=== PATIENT | female | born 1955 | race African-American/Black ===

== ENCOUNTER 2020-11-18 17:06 | Inpatient (IN) | payer BC, MEDICAID ==
[~2020-11-18] VITALS: Ht 177.8 cm; Wt 146.5 kg
[2020-11-18 19:12] LABS: BASOPHILS % 0.4 % (0.0-2.0); HEMATOCRIT. 36.7 % (36.0-48.0); HEMOGLOBIN. 11.9 g/dL (12.0-16.0); LYMPHOCYTES % 20.4 % (20.0-50.0); MEAN CORPUSCULAR HEMOGLOBIN 29.1 pg (28.0-32.0); MEAN CORPUSCULAR VOLUME 89.7 fL (81.0-99.0); MEAN PLATELET VOLUME 10.6 fl (7.4-10.4); MONOCYTES % 7.8 % (2.0-8.0); NEUTROPHILS % 69.4 % (40.0-76.0); PLATELET 220 x1000/uL (130-400); RED BLOOD CELL COUNT 4.09 mill/uL (4.2-5.4); RED CELL DISTRIBUTION WIDTH 14.4 % (11.6-14.6)
[2020-11-18] MEDS ORDERED: MECLIZINE 25MG TABLET PO ONE (19:15)
[2020-11-18] MEDS ORDERED: SODIUM CHLORIDE 0.9% 1,000 ML IV ONE (19:15)
[2020-11-18 19:20] LABS: CHLORIDE 107 mEq/L (98-107)
[2020-11-18 19:23] LABS: ETHANOL BLOOD < 10 mg/dL
[2020-11-18 19:27] LABS: LDL CHOLESTEROL 88 mg/dL (5-100)
[2020-11-18] MEDS ORDERED: ASPIRIN 325MG EC TABLET PO ONE (22:45)
[2020-11-18] MEDS ORDERED: IOHEXOL-350 100 ML BOTTLE ONE (23:19)
[2020-11-19] VITALS (7 sets, daily range): BP systolic 124–141; BP diastolic 70–84
[2020-11-19 07:42] LABS: *AMPHETAMINES SCREEN URINE NEGATIVE (NEGATIVE); *BARBITURATES SCREEN URINE NEGATIVE (NEGATIVE); *COCAINE SCREEN URINE NEGATIVE (NEGATIVE); CANNABINOID URINE SCREEN NEGATIVE (NEGATIVE); METHADONE URINE SCREEN NEGATIVE (NEGATIVE); OPIATES URINE SCREEN NEGATIVE (NEGATIVE); PHENCYCLIDINE URINE SCREEN NEGATIVE (NEGATIVE)
[2020-11-19 07:43] LABS: *BENZODIAZEPINES SCREEN URINE NEGATIVE (NEGATIVE)
[2020-11-19 07:51] LABS: CLARITY URINE CLEAR (CLEAR); COLOR URINE YELLOW (YELLOW); KETONES URINE NEGATIVE (NEGATIVE); LEUKOCYTE ESTERASE URINE NEGATIVE (NEGATIVE); NITRITE URINE NEGATIVE (NEGATIVE); OCCULT BLOOD URINE NEGATIVE (NEGATIVE); PROTEIN URINE NEGATIVE (NEGATIVE); SPECIFIC GRAVITY URINE 1.059 (1.005-1.030); UROBILINOGEN URINE 0.2 E.U./dL (0.2-1.0)
[2020-11-19] MEDS ORDERED: ONDANSETRON HCL 4MG/2ML INJ IV PRN (09:30)
[2020-11-19] MEDS ORDERED: MECLIZINE 25MG TABLET PO PRN (09:30)
[2020-11-19] MEDS ORDERED: ACETAMINOPHEN 325MG TABLET PO PRN (09:30)
[2020-11-19] MEDS ORDERED: ENOXAPARIN 30MG/0.3ML SYR SUBCUT SCH (10:00)
[2020-11-19] MEDS ORDERED: MAX MT (10:22)
[2020-11-19] MEDS ORDERED: ATOR10TA MT (10:22)
[2020-11-19] MEDS: ASPIRIN 81MG TABLET PO SCH (10:29)
[2020-11-19] MEDS: AMLODIPINE 2.5MG TABLET PO SCH (10:30)
[2020-11-19] MEDS ORDERED: ATORVASTATIN CALCIUM 10MG TABLET PO SCH (21:00)
[2020-11-19] MEDS: ENOXAPARIN 40MG/0.4ML SYR SUBCUT SCH (21:04)
[2020-11-20] VITALS: BP 118/58
[2020-11-20 04:00] VITALS: BP 135/72
[2020-11-20 05:16] LABS: BASOPHILS % 0.5 % (0.0-2.0); HEMATOCRIT. 37.1 % (36.0-48.0); HEMOGLOBIN. 12.1 g/dL (12.0-16.0); LYMPHOCYTES % 29.7 % (20.0-50.0); MEAN CORPUSCULAR HEMOGLOBIN 29.2 pg (28.0-32.0); MEAN CORPUSCULAR VOLUME 89.9 fL (81.0-99.0); MEAN PLATELET VOLUME 10.6 fl (7.4-10.4); MONOCYTES % 8.1 % (2.0-8.0); NEUTROPHILS % 59.7 % (40.0-76.0); PLATELET 194 x1000/uL (130-400); RED BLOOD CELL COUNT 4.13 mill/uL (4.2-5.4); RED CELL DISTRIBUTION WIDTH 14.3 % (11.6-14.6)
[2020-11-20 05:28] LABS: CHLORIDE 108 mEq/L (98-107)
[2020-11-20 08:00] VITALS: BP 129/93
[2020-11-20] MEDS: ASPIRIN 81MG TABLET PO SCH (09:25)
[2020-11-20] MEDS: ENOXAPARIN 40MG/0.4ML SYR SUBCUT SCH (09:25)
[2020-11-20] MEDS: AMLODIPINE 2.5MG TABLET PO SCH (09:25)
[2020-11-20 11:43] VITALS: BP_SYST 143; BP_SYST 146; BP_SYST 147; BP_DIAS 83; BP_DIAS 93; BP_DIAS 97
[2020-11-20 12:00] VITALS: BP 147/83
== END 2020-11-20 13:35 | disposition home or self-care (01) | DRG 74 ==
LOC: ER 17:06 → MICUSO 22:19 → 6WST 11-19 08:15
PROVIDERS: ADMIT Internal Medicine; ATTEND Internal Medicine
DX: G90.8 Other disorders of autonomic nervous system (principal); E44.1 Mild protein-calorie malnutrition; Z68.42 Body mass index [BMI] 45.0-49.9, adult; E66.01 Morbid (severe) obesity due to excess calories; E78.00 Pure hypercholesterolemia, unspecified; I95.1 Orthostatic hypotension; I10 Essential (primary) hypertension; E78.5 Hyperlipidemia, unspecified; G47.33 Obstructive sleep apnea (adult) (pediatric); Z90.710 Acquired absence of both cervix and uterus; Z79.899 Other long term (current) drug therapy; Z79.82 Long term (current) use of aspirin; Z71.3 Dietary counseling and surveillance
CPT/HCPCS: 36415; 70496; 70498; 70551; 71045; 80048; 80053; 80305; 80320; 81003; 82962; 83605; 83721; 83880; 84443; 84484; 85025; 93005; 93306; 93880; 97161; 99291; J1650; J7030; J8597; Q9967; G0480